=== PATIENT | male | born 1970 | race Caucasian/White ===

== ENCOUNTER 2018-01-08 23:00 | Emergency (ER) | payer OTHER ==
[2018-01-08 23:40] LABS: Absolute Lymphocytes (CBC) 3.2 K/uL (0.7-4.9); Absolute Monocytes 0.6 K/uL (0.1-1.3); Absolute Neutrophil 3.6 K/uL (1.8-8.0); Basophils % 1.2 % (0-1.3); Eosinophils % 5.2 % (0-4.4); Hematocrit 37.4 % (39.6-49.0); MCV 88.6 fL (80-100); MPV 8.6 fL (7.6-11.3); Monocytes % 7.6 % (3.3-12.3); RBC Red Blood Cell Count 4.23 M/uL (4.33-5.43)
[2018-01-08] MEDS ORDERED: NA CHLORIDE 0.9% 1,000 ML ONE (23:44)
[2018-01-09 00:11] LABS: BUN Blood Urea Nitrogen 32 mg/dL (6-20)
[2018-01-09 00:14] LABS: MCH 33.1 pg (27.0-35.0)
[2018-01-09 00:15] LABS: Bicarbonate 22 mEq/L (21-31); Sodium Level 132 mEq/L (135-145)
[2018-01-09 00:17] LABS: Glucose Level 408 mg/dL (65-120)
[2018-01-09] MEDS ORDERED: NA CHLORIDE 0.9% 1,000 ML ONE ×2 (00:40→03:17)
[2018-01-09 03:07] LABS: Potassium 4.1 mEq/L (3.6-5.0)
[2018-01-09] MEDS ORDERED: INSULIN -REGULAR HUMAN 50 UNIT/0.5 ML ML ONE (03:17)
[2018-01-09 03:27] LABS: Urine Blood NEGATIVE (NEG); Urine Glucose 2+ (NEG); Urine Protein 1+ (NEG); Urine Specific Gravity 1.015 (1.005-1.030)
--- NOTE | 2018-01-09 04:47 | ER ---
Nurse's Notes [facility] Name: Toño Marlow Age: 47 yrs Sex: Male : 1970 Arrival Date: 01/08/2018 Time: 23:01 Bed 15 Private MD: Anitha Singh F Diagnosis: Palpitations;Dehydration;Chest pain, unspecified Presentation: 01/08 23:34 Presenting complaint: Patient states: chest "twinge" intermittent for a few hours. pt ak1 admits to having increased FSBG at home. Transition of care: patient was not received from another setting of care. Onset of symptoms was January 08, 2018. Initial Sepsis Screen: Does the patient meet any 2 criteria? No. Patient's initial sepsis screen is negative. Does the patient have a suspected source of infection? No. Patient's initial sepsis screen is negative. Care prior to arrival: None. 23:34 Method Of Arrival: Ambulatory ak1 23:34 Acuity: GIA 3 ak1 Triage Assessment: 23:38 General: Appears in no apparent distress. Behavior is calm, cooperative. Pain: ak1 Complains of pain in chest. EENT: No signs and/or symptoms were reported regarding the EENT system. Neuro: No deficits noted. Cardiovascular: Reports chest pain, "rapid heart rate". Respiratory: No deficits noted. GI: No signs and/or symptoms were reported involving the gastrointestinal system. : No signs and/or symptoms were reported regarding the genitourinary system. Derm: No signs and/or symptoms reported regarding the dermatologic system. Musculoskeletal: No signs and/or symptoms reported regarding the musculoskeletal system. Historical: - Allergies: 23:38 No Known Allergies; ak1 - Home Meds: 23:38 metformin 1,000 mg Oral tr24 2 tabs once daily [Active]; glipizide 10 mg Oral tab 1 tab ak1 once daily [Active]; fenafibrate [Active]; amlodipine 5 mg tab 1 tab once daily [Active]; hydrochlorothiazide 25 mg Oral tab 1 tab once daily [Active]; - PMHx: 23:38 Diabetes - NIDDM; Hypertension; ak1 - PSHx: 23:38 Appendectomy; ak1 - Immunization history:: Adult Immunizations unknown. - Social history:: Smoking status: Patient/guardian denies using tobacco, the patient reports quitting approximately 2 years ago. - Family history:: not pertinent. - Hospitalizations: : No recent hospitalization is reported. Screenin:39 Abuse screen: Denies threats or abuse. Denies injuries from another. Nutritional ak1 screening: No deficits noted. Tuberculosis screening: No symptoms or risk factors identified. Fall Risk None identified. Assessment: 23:40 Pain: Pain does not radiate. Pain began 3 hours ago. ak1 23:59 General: pt informed of CT chest. pt given urinal for urine sample. ak1 Vital Signs: 23:38 BP 149 / 105; Pulse 116; Resp 20; Temp 98.1; Pulse Ox 99% on R/A; Weight 122.02 kg (R); ak1 Height 6 ft. 2 in. (187.96 cm) (R); Pain /10; 01/09 00:19 BP 117 / 66; Pulse 95; Resp 18; Pulse Ox 98% on R/A; ak1 01:21 BP 136 / 90; Pulse 91; Resp 18; Pulse Ox 98% on R/A; Pain 0/10; ak1 02:04 BP 129 / 83; Pulse 88; Resp 16; Temp 98.1; Pulse Ox 99% on R/A; Pain 0/10; ak1 04:53 BP 141 / 78; Pulse 89; Resp 18; Temp 98; Pulse Ox 97% on R/A; Pain 0/10; ak1 01/08 23:38 Body Mass Index 34.54 (122.02 kg, 187.96 cm) ak1 ED Course: 01/08 23:01 Patient arrived in ED. am2 23:01 Anitha Singh MD is Private Physician. am2 23:12 Desmond Montero MD is Attending Physician. rn 23:33 Sonia Mayer RN is Primary Nurse. ak1 23:36 Triage completed. ak1 23:38 X-ray completed. Portable x-ray completed in exam room. Patient tolerated procedure kw well. 23:38 Arm band placed on Patient placed in an exam room, on a stretcher, on assistant to the president, ak1 on pulse oximetry. 23:39 XRAY Chest (1 view) In Process Unspecified. EDMS 23:39 No provider procedures requiring assistance completed. Inserted saline lock: 20 gauge ak1 in left antecubital area, using aseptic technique. Blood collected. Patient maintains SpO2 saturation greater than 95% on room air. 23:40 Patient has correct armband on for positive identification. Placed in gown. Bed in low ak1 position. Call light in reach. Side rails up X 1. office helper clerical on. Pulse ox on. NIBP on. 23:50 Notified ED physician of a critical lab result(s). d-dimer 3888. ak1 01/09 00:04 Radiology exam delayed due to lab results not completed at this time. (BUN/Creatinine). cw1 00:17 Notified ED physician of a critical lab result(s). 408 glucose. ak1 02:03 BMP Sent. ak1 02:40 Radiology exam delayed due to lab results not completed at this time. repeating labs. cw1 03:38 CT Chest For PE Angio In Process Unspecified. EDMS 04:55 IV discontinued, intact, bleeding controlled, No redness/swelling at site. Pressure ak1 dressing applied. Administered Medications: 01/08 23:49 Drug: NS 0.9% 1000 ml Route: IV; Rate: 1000 ml; Site: left antecubital; ak1 01/09 00:43 Follow up: IV Status: Completed infusion ak1 00:43 Drug: NS 0.9% 1000 ml Route: IV; Rate: 1000 ml; Site: left antecubital; ak1 02:03 Follow up: IV Status: Completed infusion ak1 03:20 Drug: Insulin Regular Human 10 units {Co-Signature: okry (Arlyn Anguiano RN).} Route: ak1 Sub-Q; Site: left upper arm; 04:56 Follow up: Response: No adverse reaction ak1 03:36 Drug: NS 0.9% 1000 ml Route: IV; Rate: 1000 ml; Site: left antecubital; ak1 04:56 Follow up: IV Status: Completed infusion ak1 Point of Care Testing: Blood Glucose: 04:53 Blood Glucose: 317 mg/dL; ak1 04:53 ERP notifed of FSBG ak1 Ranges: Outcome: 04:47 Discharge ordered by . rn 04:54 Discharged to home ambulatory. ak1 04:54 Condition: improved 04:54 Discharge instructions given to patient, Instructed on discharge instructions, follow up and referral plans. 04:55 Patient left the ED. ak1 Signatures: Dispatcher [employer] EDMS Desmond Montero MD MD rn Woodley, Crystal cw1 Nikki Kong Amber RN RN ak1 Amie Marie am2 Arlyn Anguiano RN ea
--- NOTE | 2018-01-09 04:48 | EDPHYS ---
Physician Documentation [facility] Name: Toño Marlow Age: 47 yrs Sex: Male : 1970 Arrival Date: 01/08/2018 Time: 23:01 Bed 15 Private MD: Anitha Singh F ED Physician Desmond Montero HPI: 01/08 23:33 This 47 yrs old Male presents to ER via Unassigned with complaints of Chest rn Pain. 23:33 The patient or guardian reports chest pain that is located primarily in the anterior rn chest wall. Onset: today. The pain does not radiate. The chest pain is described as pinching. Modifying factors: The symptoms are alleviated by nothing. the symptoms are aggravated by nothing. Severity of pain: At its worst the pain was mild in the emergency department the pain is unchanged. The patient has not experienced similar symptoms in the past. Reports noticed today was having heart racing, checked HR, highest was 114 on his phone, felt a few seconds of intermittent chest "pinch" under left nipple, non-radiating, not better or worse with anything, states trouble falling asleep so came here for evaluation, states sugars have been running high, sometimes in 400s, takes only metformin, but sometimes sugar is 100. . Historical: - Allergies: 23:38 No Known Allergies; ak1 - Home Meds: 23:38 metformin 1,000 mg Oral tr24 2 tabs once daily [Active]; glipizide 10 mg Oral tab 1 tab ak1 once daily [Active]; fenafibrate [Active]; amlodipine 5 mg tab 1 tab once daily [Active]; hydrochlorothiazide 25 mg Oral tab 1 tab once daily [Active]; - PMHx: 23:38 Diabetes - NIDDM; Hypertension; ak1 - PSHx: 23:38 Appendectomy; ak1 - Immunization history:: Adult Immunizations unknown. - Social history:: Smoking status: Patient/guardian denies using tobacco, the patient reports quitting approximately 2 years ago. - Family history:: not pertinent. - Hospitalizations: : No recent hospitalization is reported. ROS: 23:33 Constitutional: Negative for fever, chills, and weight loss, Eyes: Negative for injury, rn pain, redness, and discharge, Neck: Negative for injury, pain, and swelling, Cardiovascular: Negative for edema, Respiratory: Negative for shortness of breath, cough, wheezing, and pleuritic chest pain, Abdomen/GI: Negative for abdominal pain, nausea, vomiting, diarrhea, and constipation, Back: Negative for injury and pain, MS/Extremity: Negative for injury and deformity, Skin: Negative for injury, rash, and discoloration, Neuro: Negative for headache, weakness, numbness, tingling, and seizure. Exam: 23:33 Constitutional: This is a well developed, well nourished patient who is awake, alert, rn and in no acute distress. Head/Face: Normocephalic, atraumatic. Eyes: Pupils equal round and reactive to light, extra-ocular motions intact. Lids and lashes normal. Conjunctiva and sclera are non-icteric and not injected. Cornea within normal limits. Periorbital areas with no swelling, redness, or edema. Neck: Trachea midline, no thyromegaly or masses palpated, and no cervical lymphadenopathy. Supple, full range of motion without nuchal rigidity, or vertebral point tenderness. No Meningismus. Cardiovascular: tachycardic, regular, no murmur Respiratory: Lungs have equal breath sounds bilaterally, clear to auscultation and percussion. No rales, rhonchi or wheezes noted. No increased work of breathing, no retractions or nasal flaring. Abdomen/GI: Soft, non-tender, with normal bowel sounds. No distension or tympany. No guarding or rebound. No evidence of tenderness throughout. Skin: Warm, dry with normal turgor. Normal color with no rashes, no lesions, and no evidence of cellulitis. MS/ Extremity: Pulses equal, no cyanosis. Neurovascular intact. Full, normal range of motion. Equal circumference. Neuro: Awake and alert, GCS 15, oriented to person, place, time, and situation. Cranial nerves II-XII grossly intact. Motor strength 5/5 in all extremities. Sensory grossly intact. Cerebellar exam normal. Normal gait. Vital Signs: 23:38 BP 149 / 105; Pulse 116; Resp 20; Temp 98.1; Pulse Ox 99% on R/A; Weight 122.02 kg (R); ak1 Height 6 ft. 2 in. (187.96 cm) (R); Pain 09/21; 01/09 00:19 BP 117 / 66; Pulse 95; Resp 18; Pulse Ox 98% on R/A; ak1 01:21 BP 136 / 90; Pulse 91; Resp 18; Pulse Ox 98% on R/A; Pain 0/10; ak1 02:04 BP 129 / 83; Pulse 88; Resp 16; Temp 98.1; Pulse Ox 99% on R/A; Pain 0/10; ak1 04:53 BP 141 / 78; Pulse 89; Resp 18; Temp 98; Pulse Ox 97% on R/A; Pain 0/10; ak1 01/08 23:38 Body Mass Index 34.54 (122.02 kg, 187.96 cm) ak1 MDM: 01/08 23:12 Patient medically screened. rn 01/09 04:45 Differential diagnosis: acute pericarditis, anxiety, costochondritis, esophagitis, rn gastroesophageal reflux disease (GERD), pericarditis, pleurisy, hyperglycemia, PE, pleurisy, dehydration. Data reviewed: vital signs, nurses notes, lab test result(s), EKG, radiologic studies, CT scan, plain films, and as a result, I will discharge patient. Counseling: I had a detailed discussion with the patient and/or guardian regarding: the historical points, exam findings, and any diagnostic results supporting the discharge/admit diagnosis, lab results, radiology results, the need for outpatient follow up, to return to the emergency department if symptoms worsen or persist or if there are any questions or concerns that arise at home. Response to treatment: the patient's symptoms have markedly improved after treatment, the patient's condition has returned to base line, the patient is now symptom free, patient is well hydrated. and as a result, I will discharge patient. Special discussion: I discussed with the patient/guardian in detail that at this point there is no indication for admission to the hospital. It is understood, however, that if the symptoms persist or worsen the patient needs to return immediately for re-evaluation. ED course: HR improved with fluids, normal vitals, patient feels much better, palpitations and tachycardia likely related to dehydration from hyperglycemia, no AG, neg CT PE, will dc home. . 01/08 23:23 Order name: Basic Metabolic Panel; Complete Time: 00:23 rn 01/08 23:23 Order name: BNP; Complete Time: 00:15 rn 01/08 23:23 Order name: CBC with Diff; Complete Time: 00:23 rn 01/08 23:23 Order name: Troponin (emerg Dept Use Only); Complete Time: 00:23 rn 01/08 23:23 Order name: D-Dimer; Complete Time: 00:03 rn 01/08 23:23 Order name: Ketone, Serum; Complete Time: 00:23 rn 01/08 23:23 Order name: XRAY Chest (1 view) rn 01/08 23:55 Order name: CT Chest For PE Angio rn 01/09 00:57 Order name: BMP rn 01/09 00:57 Order name: Basic Metabolic Panel; Complete Time: 03:09 EDMS 01/09 01:35 Order name: Urine Dipstick--Ancillary (enter results); Complete Time: 04:44 rg2 01/08 23:23 Order name: Urine Dipstick-Ancillary (obtain specimen); Complete Time: 01:49 rn 01/08 23:23 Order name: EKG; Complete Time: 23:24 rn 01/08 23:23 Order name: Cardiac monitoring; Complete Time: 23:34 rn 01/08 23:23 Order name: EKG - Nurse/Tech; Complete Time: 23:41 rn 01/08 23:23 Order name: IV Saline Lock; Complete Time: 23:34 rn 01/08 23:23 Order name: Labs collected and sent; Complete Time: 23:34 rn 01/08 23:23 Order name: O2 Per Protocol; Complete Time: 23:34 rn 01/08 23:23 Order name: O2 Sat Monitoring; Complete Time: 23:34 rn Administered Medications: 01/08 23:49 Drug: NS 0.9% 1000 ml Route: IV; Rate: 1000 ml; Site: left antecubital; ak1 01/09 00:43 Follow up: IV Status: Completed infusion ak1 00:43 Drug: NS 0.9% 1000 ml Route: IV; Rate: 1000 ml; Site: left antecubital; ak1 02:03 Follow up: IV Status: Completed infusion ak1 03:20 Drug: Insulin Regular Human 10 units {Co-Signature: kory (Arlyn Anguiano RN).} Route: ak1 Sub-Q; Site: left upper arm; 04:56 Follow up: Response: No adverse reaction ak1 03:36 Drug: NS 0.9% 1000 ml Route: IV; Rate: 1000 ml; Site: left antecubital; ak1 04:56 Follow up: IV Status: Completed infusion ak1 Point of Care Testing: Blood Glucose: 04:53 Blood Glucose: 317 mg/dL; ak1 04:53 ERP notifed of FSBG ak1 Ranges: Critical Glucose Levels:Adult <50 mg/dl or >400 mg/dl <40 mg/dl or >180 mg/dl Disposition: 01/09/18 04:47 Discharged to Home. Impression: Palpitations, Dehydration, Chest pain, unspecified. - Condition is Stable. - Discharge Instructions: Nonspecific Chest Pain, Dehydration, Adult, Hyperglycemia, Palpitations. - Medication Reconciliation Form, Thank You Letter, Antibiotic Education, Prescription Opioid Use form. - Follow up: Private Physician; When: As needed; Reason: Recheck today's complaints, Re-evaluation by your physician. - Problem is new. - Symptoms have improved. Signatures: Dispatcher [employer] EDMS Desmond Montero MD MD rn Krenek, Amber, RN RN ak Arlyn Anguiano RN, ea Corrections: (The following items were deleted from the chart) 01/08 23:35 23:33 Constitutional: Negative for fever, chills, and weight loss, Eyes: Negative for rn injury, pain, redness, and discharge, Neck: Negative for injury, pain, and swelling, Cardiovascular: Negative for edema, Respiratory: Negative for shortness of breath, cough, wheezing, and pleuritic chest pain, Abdomen/GI: Negative for abdominal pain, nausea, vomiting, diarrhea, and constipation, Back: Negative for injury and pain, MS/Extremity: Negative for injury and deformity, Skin: Negative for injury, rash, and discoloration, Neuro: Negative for headache, weakness, numbness, tingling, and seizure, rn 23:36 23:33 Constitutional: This is a well developed, well nourished patient who is awake, rn alert, and in no acute distress. Head/Face: Normocephalic, atraumatic. Eyes: Pupils equal round and reactive to light, extra-ocular motions intact. Lids and lashes normal. Conjunctiva and sclera are non-icteric and not injected. Cornea within normal limits. Periorbital areas with no swelling, redness, or edema. Neck: Trachea midline, no thyromegaly or masses palpated, and no cervical lymphadenopathy. Supple, full range of motion without nuchal rigidity, or vertebral point tenderness. No Meningismus. Cardiovascular: Regular rate and rhythm with a normal S1 and S2. No gallops, murmurs, or rubs. Normal PMI, no JVD. No pulse deficits. Respiratory: Lungs have equal breath sounds bilaterally, clear to auscultation and percussion. No rales, rhonchi or wheezes noted. No increased work of breathing, no retractions or nasal flaring. Abdomen/GI: Soft, non-tender, with normal bowel sounds. No distension or tympany. No guarding or rebound. No evidence of tenderness throughout. Skin: Warm, dry with normal turgor. Normal color with no rashes, no lesions, and no evidence of cellulitis. MS/ Extremity: Pulses equal, no cyanosis. Neurovascular intact. Full, normal range of motion. Equal circumference. Neuro: Awake and alert, GCS 15, oriented to person, place, time, and situation. Cranial nerves II-XII grossly intact. Motor strength 5/5 in all extremities. Sensory grossly intact. Cerebellar exam normal. Normal gait. rn
--- NOTE | 2018-01-09 07:15 | EKG ---
Test Date: 2018-01-08 Test Time: 23:36:23 Language Translator: SHADY MEASUREMENT RESULTS: Intervals: Rate: 109 CA: 142 QRSD: 76 QT: 344 QTc: 463 [place]: P: 43 CA: 142 QRS: 69 T: 54 INTERPRETIVE STATEMENTS: Sinus tachycardia with frequent premature ventricular complexes Otherwise normal ECG No previous ECG available for comparison Electronically Signed On 01-09-18 07:14:50 CDT by Hi Rodrigez
--- NOTE | 2018-01-09 08:33 | RAD REPORT ---
EXAM DESCRIPTION: RAD - Chest Single View - 01/08/2018 11:39 pm CLINICAL HISTORY: Chest pain COMPARISON: None. TECHNIQUE: AP portable chest image was obtained 2331 hours . FINDINGS: Lungs are clear. Heart and vasculature are normal. No measurable pleural effusion and no p neumothorax. No gross bony abnormality seen. No acute aortic findings suspected. IMPRESSION: No acute cardiopulmonary process.
--- NOTE | 2018-01-09 09:00 | RAD REPORT ---
EXAM DESCRIPTION: CT - Chest For Pe Angio - 01/09/2018 7:03 am CLINICAL HISTORY: Chest pain A preliminary written report was provided at the time of the study, and the report was reviewed prio r to final dictation. COMPARISON: None. TECHNIQUE: Dynamically enhanced 3 mm thick images of the chest were obtained during administration o f approximately 150mL Isovue 370 IV contrast. Coronal and oblique reconstruction images were generate d and reviewed. Exam utilizes a protocol to evaluate the pulmonary arterial tree. All CT scans are performed using dose optimization technique as appropriate and may include automated exposure control or mA/KV adjustment according to patient size. FINDINGS: No pulmonary emboli are identified. The aorta as imaged shows no acute or suspicious finding. No pericardial thickening or effusion. No infiltrate or mass in the lung parenchyma. No pleural effusion or pleural thickening. No mediastinal or hilar suspicious masses. A few mediastinal and hilar granulomatous calcifications a re present. No chest wall masses or abnormal axillary lymphadenopathy. IMPRESSION: No pulmonary emboli identified. No other significant or suspicious findings.
== END 2018-01-09 04:55 | disposition home or self-care (01) ==
LOC: ER 23:00
DX: E86.0 Dehydration (principal); R00.2 Palpitations; I10 Essential (primary) hypertension; E11.9 Type 2 diabetes mellitus without complications; Z87.891 Personal history of nicotine dependence
CPT/HCPCS: 36415; 71045; 71275; 80048; 81003; 82009; 82962; 83880; 84484; 85025; 85379; 93005; 96360; 96361; 96372; 99285; J7030; Q9967

== ENCOUNTER 2022-04-15 09:17 | Emergency (ER) | payer OTHER, SELFPAY ==
--- OUTSIDE RECORDS SUMMARY | 2022-04-15 09:21 | XMS REPORT | Continuity of Care Document ---
:1970 Author Organization [facility] t Address [address] [place] [address] Care Team Providers Name Role Phone A_Byrd Attending Clinician Unavailable A_Byrd Admitting Clinician Unavailable Payers Payer Name Policy Type Policy Number Effective Date Expiration Date [facility] - [id number] CHOICE PLUS Problems Condition Condition Condition Status Onset Resolution Last Treating Co mments Source Name Details Category Date Date Treatment Clinician Date Hypertrigl Hypertrigl Problem Active 2019-0 [facility] yceridemia yceridemia 5-30 da 00:00: Medical 00 Group Type 2 Type 2 Problem Active [facility] diabetes Diabetes da mellitus [facility] Hyperlipid Hyperlipid Problem Active [facility] Impotence Impotence Problem Active [facility] Essential Essential Problem Active [facility] hypertensi Hypertensi da on on [facility] Group Allergies, Adverse Reactions, Alerts This patient has no known allergies or adverse reactions. Social History Smoking Status Start Date Stop Date Source Former Smoker [facility] Medications Ordered Filled Start Stop Current Ordering Indication Dosage Frequency Signature Comments Components Source Medication Medication Date Date Medication? Clinician (SIG) Name Name Actos 30 mg Actos 30 mg No 1 Q1D Actos 30 [facility] tablet Take tablet Take mg tablet da 1 tablet 1 tablet Take 1 Medic al every day every day tablet Boo up by oral by oral every day route. route. by oral route. amlodipine amlodipine No amlodipine [facility] 5 mg tablet 5 mg tablet 5 mg d a TAKE ONE TAKE ONE tablet Medic al TABLET BY TABLET BY TAKE ONE G roup MOUTH ONCE MOUTH ONCE TABLET BY DAILY IN DAILY IN MOUTH ONCE THE MORNING THE MORNING DAILY IN THE MORNING fenofibrate fenofibrate No 1 Q1D fenofibrat [facility] 160 mg 160 mg e 160 mg da tablet Take tablet Take tablet Medical 1 tablet 1 tablet Take 1 Group every day every day tablet by oral by oral every day route. route. by oral route. glipizide glipizide No 1 BID glipizide [facility] 10 mg 10 mg 10 mg da tablet Take tablet Take tablet Medical 1 tablet 1 tablet Take 1 Group twice a day twice a day tablet by oral by oral twice a route. route. day by oral route. hydrochloro hydrochloro No 1 Q1D hydrochlor [facility] thiazide 25 thiazide 25 othiazide da mg tablet mg tablet 25 mg Medi emir Take 1 Take 1 tablet Group tablet tablet Take 1 every day every day tablet by oral by oral every day route. route. by oral route. Lipitor 10 Lipitor 10 No 1 Q1D Lipitor 10 [facility] mg tablet mg tablet mg tablet da Take 1 Take 1 Take 1 Medical tablet tablet tablet Group every day every day every day by oral by oral by oral route. route. route. metformin metformin No 1 BID metformin [facility] 1,000 mg 1,000 mg 1,000 mg da tablet Take tablet Take tablet Medical 1 tablet 1 tablet Take 1 Group twice a day twice a day tablet by oral by oral twice a route. route. day by oral route. Immunizations Ordered Immunization Filled Immunization Date Status Commen ts Source Name Name pneumococcal pneumococcal 2018-01-19 Completed [place] conjugate PCV 13 conjugate PCV 13 12:16:00 Pa dical Group influenza, influenza, 2017-08-11 Completed [place] injectable, injectable, 11:40:00 Medical Grou p quadrivalent quadrivalent pneumococcal pneumococcal 2008-09-12 Completed [place] polysaccharide PPV23 polysaccharide PPV23 00:00:00 Medical Group pneumococcal, pneumococcal, 2008-09-12 Completed [place] [facility] unspecified unspecified 00:00:00 [facility] Grou p formulation formulation Td (adult) Td (adult) 2007-09-12 Completed [place] 00:00:00 [facility] Vital Signs Vital Name Observation Time Observation Value Comments Source BP Diastolic 2019-02-08 00:00:00 85 mm[Hg] [facility] Height 2019-02-08 00:00:00 72 [in_i] [facility] BMI (Body Mass 2019-02-08 00:00:00 38.4 kg/m2 [facility] [employer] [facility]) Group BP Systolic 2019-02-08 00:00:00 140 mm[Hg] [facility] Body Weight 2019-02-08 00:00:00 4528 [oz_av] [facility] Procedures This patient has no known procedures. Encounters Start End Encounter Admission Attending Care Care Encounter Source Date/Time Date/Time Type Type Clinicians Facility Department ID 2021-09-10 2021-09-10 Outpatient A_[facility] [id number] [place] 12:49:00 12:49:00 230 [facility] 2020-07-30 2020-07-30 Outpatient A_Byrd [facility] [id number] [place] 02:21:00 02:21:00 118 Medical Group 2020-05-15 2020-05-15 Outpatient A_Byrd [facility] MMG [id number] [place] 02:55:00 02:55:00 903 Medical Group 2020-04-10 2020-04-10 Outpatient A_Byrd [facility] MMG [id number] [place] 12:58:00 12:58:00 730 Medical Group 2020-03-06 2020-03-06 Outpatient A_Byrd [facility] MMG [id number] [place] 12:54:00 12:54:00 625 Medical Group 2020-01-31 2020-01-31 Outpatient A_Byrd [facility] MMG [id number] [place] 12:52:00 12:52:00 521 Medical Group 2020-01-24 2020-01-24 Outpatient A_By[facility] MMG [id number] [place] 06:23:00 06:23:00 514 Medical Group 2020-01-24 2020-01-24 Outpatient A_By[facility] MMG [id number] [place] 06:23:00 06:23:00 515 Medical Group 2020-01-24 2020-01-24 Nahum Rick MM [place] - [id number] [facility] 00:00:00 00:00:00 MD Dante: [address] [facility] [address], [place] [address] , Ph. 2019-02-08 2019-02-08 Nahum KEYES [place] - [id number] [facility] 00:00:00 00:00:00 [place] [facility] [address] [facility] [place], [place] - [address], [facility] [address] , Ph. Results This patient has no known results.
[2022-04-15 09:59] LABS: Absolute Lymphocytes (CBC) 1.5 K/uL (0.7-4.9); Hematocrit 34.6 % (39.6-49.0); Lymphocytes % 19.7 % (15.3-44.8); MCV 88.2 fL (80-100); RBC Red Blood Cell Count 3.93 M/uL (4.33-5.43)
[2022-04-15 10:22] LABS: Thyroid Stimulating Hormone 1.43 uIU/mL (0.360-3.740); Troponin High Sensitivity 6.3 pg/mL (<58.9)
--- NOTE | 2022-04-15 10:33 | RAD REPORT ---
EXAM DESCRIPTION: RAD - Chest Single View - 04/15/2022 10:26 am CLINICAL HISTORY: CHEST PAIN Chest pain. COMPARISON: Chest Single View dated 01/08/2018 FINDINGS: Portable technique limits examination quality. The lungs are grossly clear. The heart is normal in size. No displaced fractures. IMPRESSION: No acute intrathoracic process suspected.
[2022-04-15] MEDS ORDERED: NA CHLORIDE 0.9% 500 ML ONE (10:44)
--- NOTE | 2022-04-15 11:23 | ER ---
Nurse's Notes [facility] Name: Toño Marlow Age: 51 yrs Sex: Male : 1970 Arrival Date: 04/15/2022 Time: 09:21 Bed 6 Private MD: Diagnosis: Palpitations;Dehydration;Abnormal results of kidney function studies-Creatinine 2.12 Presentation: 04/15 09:27 Chief complaint: Patient states: "I was working outside and I suddenly just felt weak ss and felt a fluttering in my chest. I never had any pain or tightness. My blood sugar this morning was 83, I ate a taco and at medical at work, they checked it and it was 221.". Coronavirus screen: Client denies travel out of the [place] in the last 14 days. Ebola Screen: Patient denies exposure to infectious person. Patient denies travel to an Ebola-affected area in the 21 days before illness onset. Initial Sepsis Screen: Does the patient meet any 2 criteria? No. Patient's initial sepsis screen is negative. Does the patient have a suspected source of infection? No. Patient's initial sepsis screen is negative. Risk Assessment: Do you want to hurt yourself or someone else? Patient reports no desire to harm self or others. Onset of symptoms was April 15, 2022. 09:27 Method Of Arrival: Ambulatory ss 09:27 Acuity: GIA 3 ss 09:30 Chief complaint:. Coronavirus screen: Vaccine status: Patient reports being ll1 unvaccinated. Client denies travel out of the [place] in the last 14 days. At this time, the client does not indicate any symptoms associated with coronavirus-19. Ebola Screen: Patient denies travel to an Ebola-affected area in the 21 days before illness onset. No acute neurological deficit is noted. Initial Sepsis Screen: Does the patient meet any 2 criteria? HR > 90 bpm. No. Patient's initial sepsis screen is negative. Does the patient have a suspected source of infection? No. Patient's initial sepsis screen is negative. Risk Assessment: Do you want to hurt yourself or someone else? Patient reports no desire to harm self or others. Onset of symptoms was April 15, 2022 at 08:15. 09:30 Acuity: GIA 3 ll1 09:30 Method Of Arrival: Ambulatory ll1 Triage Assessment: 09:35 The onset of the patients symptoms was less than three hours ago. General: Appears in ll1 no apparent distress. Behavior is calm, cooperative, appropriate for age. Pain: Denies pain. Neuro: Reports numbness weakness. Cardiovascular: Reports palpitations. Respiratory: Denies cough. Stroke Activation: Symptom onset > 6 hours Physician: Stroke Attending; Name: ; Notified At: ; Arrived At: Physician: Chief Stroke Resident; Name: ; Notified At: ; Arrived At: Physician: Stroke Resident; Name: ; Notified At: ; Arrived At: Physician: ED Attending; Name: ; Notified At: ; Arrived At: Physician: ED Resident; Name: ; Notified At: ; Arrived At: Historical: - Allergies: 09:29 No Known Allergies; ll1 - PMHx: 09:29 Diabetes - NIDDM; Hypertension; ll1 - PSHx: 09:29 Appendectomy; ll1 - Immunization history:: Client reports having NOT received the Covid vaccine. - Social history:: Smoking status: Patient/guardian denies using tobacco, the patient reports quitting approximately 7 years ago. Screenin:41 Abuse screen: Denies threats or abuse. Nutritional screening: No deficits noted. kr3 Tuberculosis screening: No symptoms or risk factors identified. Fall Risk IV access (20 points). Total Rae Fall Scale indicates No Risk (0-24 pts). Assessment: 11:17 General: Appears in no apparent distress. comfortable, Behavior is calm, cooperative, kr3 appropriate for age. Vital Signs: 09:27 Pulse 97; Resp 18; Temp 98.0(TE); Pulse Ox 100% on R/A; Weight 113.4 kg; Height 6 ft. 2 ss in. (187.96 cm); Pain 0/10; 09:30 BP 127 / 77; Pulse 96; Resp 18; Temp 98.8; Pulse Ox 100% on R/A; Weight 113.4 kg; ll1 Height 6 ft. 2 in. (187.96 cm); Pain 0/10; 09:31 BP 127 / 77; ss 10:01 BP 115 / 70; Pulse 85 LA; kr3 10:01 BP 117 / 64; Pulse 84 RA; kr3 11:18 BP 119 / 66; Pulse 84; Pulse Ox 100% on R/A; kr3 11:40 BP 139 / 69; Pulse 84; Pulse Ox 100% on R/A; kr3 09:30 Body Mass Index 32.10 (113.40 kg, 187.96 cm) ll1 ED Course: 09:21 Patient arrived in ED. rg4 09:23 Lilly De La Cruz FNP-C [facility]. snw 09:23 Philip Valero MD is Attending Physician. snw 09:26 Adelina Villalta, RN is Primary Nurse. kr3 09:29 Arm band placed on Patient placed in an exam room, on a stretcher. ll1 09:29 EKG completed in triage. Results shown to MD. ll1 09:31 Triage completed. ss 09:38 Inserted saline lock: 20 gauge in right forearm, using aseptic technique. Blood kr3 collected. 10:28 XRAY Chest (1 view) In Process Unspecified. EDMS 11:41 Bed in low position. Call light in reach. Side rails up X 1. kr3 11:41 No provider procedures requiring assistance completed. IV discontinued, intact, kr3 bleeding controlled, No redness/swelling at site. Pressure dressing applied. Administered Medications: 10:39 Drug: NS 0.9% 500 ml Route: IV; Rate: bolus; Site: right forearm; kr3 11:17 Follow up: Response: No adverse reaction; IV Status: Completed infusion; IV Intake: ll1 500ml Medication: 11:42 VIS not applicable for this client. kr3 Intake: 11:17 IV: 500ml; Total: 500ml. ll1 Outcome: 11:22 Discharge ordered by MD. snw 11:41 Discharged to home ambulatory. kr3 11:41 Condition: stable 11:41 Discharge instructions given to patient, Instructed on discharge instructions, follow up and referral plans. Demonstrated understanding of instructions, follow-up care. 11:42 Patient left the ED. kr3 Signatures: Dispatcher [employer] EDNM Lilly De La Cruz FNP-C FNP-Jennifer Gutierrez RN RN ss Garcia, Rubi rg4 Kalina Francis RN RN ll1 Adelina Villalta, ELLIOTT RN kr3 Corrections: (The following items were deleted from the chart) 09:45 09:44 Inserted saline lock: 20 gauge in right forearm, using aseptic technique. Blood kr3 collected. kr3 11:17 11:16 Reassessment: kr3 kr3 11:18 11:17 General: Appears in no apparent distress. comfortable, Behavior is calm, kr3 cooperative, appropriate for age, kr3
--- NOTE | 2022-04-15 11:23 | EDPHYS ---
Physician Documentation [facility] Name: Toño Marolw Age: 51 yrs Sex: Male : 1970 Arrival Date: 04/15/2022 Time: 09:21 Bed 6 Private MD: ED Physician Philip Valero HPI: 04/15 09:35 This 51 yrs old Male presents to ER via Ambulatory with complaints of Numbness Of Hand, snw Chest Fluttering, Weakness. 09:36 The patient presents with a history of "fluttering". Context: The symptoms occur with snw light activity. Onset: The symptoms/episode began/occurred suddenly, today, and improved 1 hours ago. Duration: The patient or guardian reports a single episode, that is now resolved. Modifying factors: The symptoms are aggravated by heat. Associated signs and symptoms: Pertinent positives: left hand paresthesias, Pertinent negatives: chest pain, cough, lightheadedness, nausea, SOB, syncope. Severity of symptoms: At their worst the symptoms were moderate this morning. The patient has not experienced similar symptoms in the past, family hx of A. fib. The patient has not recently seen a physician. on meds for dm, high cholesterol, htn. Historical: - Allergies: 09:29 No Known Allergies; ll1 - PMHx: 09:29 Diabetes - NIDDM; Hypertension; ll1 - PSHx: 09:29 Appendectomy; ll1 - Immunization history:: Client reports having NOT received the Covid vaccine. - Social history:: Smoking status: Patient/guardian denies using tobacco, the patient reports quitting approximately 7 years ago. ROS: 09:36 Constitutional: Negative for fever, chills, and weight loss, Eyes: Negative for injury, snw pain, redness, and discharge, ENT: Negative for injury, pain, and discharge, Neck: Negative for injury, pain, and swelling, Respiratory: Negative for shortness of breath, cough, wheezing, and pleuritic chest pain, Abdomen/GI: Negative for abdominal pain, nausea, vomiting, diarrhea, and constipation, Back: Negative for injury and pain, : Negative for injury, bleeding, discharge, and swelling, MS/Extremity: Negative for injury and deformity, Neuro: Negative for headache, weakness, numbness, tingling, and seizure, Psych: Negative for depression, anxiety, suicide ideation, homicidal ideation, and hallucinations, Allergy/Immunology: Negative for hives, rash, and allergies. 09:36 Cardiovascular: Positive for palpitations, Negative for chest pain, edema. 09:36 Skin: Positive for paresthesias to left hand, Negative for abrasions, avulsion, cellulitis. 09:36 Endocrine: Positive for diabetes, fsbs at 125mg/dl post breakfast taco, prion to s/s onset. Exam: 09:36 Constitutional: This is a well developed, well nourished patient who is awake, alert, snw and in no acute distress. Head/Face: Normocephalic, atraumatic. Eyes: Pupils equal round and reactive to light, extra-ocular motions intact. Lids and lashes normal. Conjunctiva and sclera are non-icteric and not injected. Cornea within normal limits. Periorbital areas with no swelling, redness, or edema. ENT: Nares patent. No nasal discharge, no septal abnormalities noted. Tympanic membranes are normal and external auditory canals are clear. Oropharynx with no redness, swelling, or masses, exudates, or evidence of obstruction, uvula midline. Mucous membranes moist. Neck: Trachea midline, no thyromegaly or masses palpated, and no cervical lymphadenopathy. Supple, full range of motion without nuchal rigidity, or vertebral point tenderness. No Meningismus. Chest/axilla: Normal chest wall appearance and motion. Nontender with no deformity. No lesions are appreciated. Cardiovascular: Tachycardic rate and rhythm with a normal S1 and S2. No gallops, murmurs, or rubs. Normal PMI, no JVD. No pulse deficits. EKG without ectopy, rate 92bpm, rightward axis. Pt denies chest pain Respiratory: Lungs have equal breath sounds bilaterally, clear to auscultation and percussion. No rales, rhonchi or wheezes noted. No increased work of breathing, no retractions or nasal flaring. Abdomen/GI: Soft, non-tender, with normal bowel sounds. No distension or tympany. No guarding or rebound. No evidence of tenderness throughout. Back: No spinal tenderness. No costovertebral tenderness. Full range of motion. Skin: Warm, dry with normal turgor. Normal color with no rashes, no lesions, and no evidence of cellulitis. MS/ Extremity: Pulses equal, no cyanosis. Neurovascular intact. Full, normal range of motion. Neuro: Awake and alert, GCS 15, oriented to person, place, time, and situation. Cranial nerves II-XII grossly intact. Motor strength 5/5 in all extremities. Sensory grossly intact. Cerebellar exam normal. Normal gait. At the time of s/s pt states paresthesias to left hand, that has resolved at present Psych: Awake, alert, with orientation to person, place and time. Behavior, mood, and affect are within normal limits. 09:47 ECG was reviewed by the Attending Physician. bpm 92, right axis, flipped T in III, poor snw R wave progression Vital Signs: 09:27 Pulse 97; Resp 18; Temp 98.0(TE); Pulse Ox 100% on R/A; Weight 113.4 kg; Height 6 ft. 2 ss in. (187.96 cm); Pain 0/10; 09:30 BP 127 / 77; Pulse 96; Resp 18; Temp 98.8; Pulse Ox 100% on R/A; Weight 113.4 kg; ll1 Height 6 ft. 2 in. (187.96 cm); Pain 0/10; 09:31 BP 127 / 77; ss 10:01 BP 115 / 70; Pulse 85 LA; kr3 10:01 BP 117 / 64; Pulse 84 RA; kr3 11:18 BP 119 / 66; Pulse 84; Pulse Ox 100% on R/A; kr3 11:40 BP 139 / 69; Pulse 84; Pulse Ox 100% on R/A; kr3 09:30 Body Mass Index 32.10 (113.40 kg, 187.96 cm) ll1 MDM: 09:35 Patient medically screened. snw 14:24 Data reviewed: vital signs, nurses notes. Data interpreted: Pulse oximetry: on room air snw is 100 %. Interpretation: normal. Counseling: I had a detailed discussion with the patient and/or guardian regarding: the historical points, exam findings, and any diagnostic results supporting the discharge/admit diagnosis, the presence of at least one elevated blood pressure reading (>120/80) during this emergency department visit, lab results. Response to treatment: the patient's symptoms have resolved after treatment. 04/15 09:46 Order name: Basic Metabolic Panel; Complete Time: 10:24 snw 04 09:46 Order name: CBC with Diff; Complete Time: 10:20 snw 04/15 09:46 Order name: Troponin HS; Complete Time: 10:24 snw 04/15 09:46 Order name: TSH; Complete Time: 10:24 snw 04/15 09:46 Order name: CPK; Complete Time: 10:24 snw 04 11:26 Order name: Urine Dipstick-Ancillary; Complete Time: 14:23 EDMS 04/15 14:23 Interpretation: Within normal limits: proteinuria. snw 04/15 09:46 Order name: XRAY Chest (1 view); Complete Time: 10:35 snw 04/15 09:46 Order name: EKG; Complete Time: 09:47 snw 04/15 09:46 Order name: Cardiac monitoring; Complete Time: 09:53 snw 04/15 09:46 Order name: EKG - Nurse/Tech; Complete Time: 09:48 snw 04/15 09:46 Order name: IV Saline Lock; Complete Time: 09:48 snw 04/15 09:46 Order name: Labs collected and sent; Complete Time: 09:48 snw 04/15 09:46 Order name: O2 Per Protocol; Complete Time: 09:48 snw 04/15 09:46 Order name: O2 Sat Monitoring; Complete Time: 09:48 snw 04/15 09:53 Order name: Bilateral blood pressure; Complete Time: 10:01 snw 04 11:24 Order name: Urine Dipstick-Ancillary (obtain specimen); Complete Time: 11:25 snw EC:25 Rate is 92 beats/min. Rhythm is regular. PA interval is normal. QRS interval is normal. snw QT interval is normal. No Q waves. T waves are Inverted in lead III. No ST changes noted. Clinical impression: NSR w/ Non-specific ST/T Changes. Administered Medications: 10:39 Drug: NS 0.9% 500 ml Route: IV; Rate: bolus; Site: right forearm; kr3 11:17 Follow up: Response: No adverse reaction; IV Status: Completed infusion; IV Intake: ll1 500ml Disposition: 14:37 Co-signature as Attending Physician, Philip Valero MD I agree with the assessment and kdr plan of care. Disposition Summary: 04/15/22 11:22 Discharge Ordered Location: Home snw Condition: Stable snw Diagnosis - Palpitations snw - Dehydration snw - Abnormal results of kidney function studies - Creatinine 2.12 snw Followup: snw - With: Private Physician - When: - Reason: Recheck today's complaints, Continuance of care, Re-evaluation by your physician Followup: snw - With: Emergency Department - When: As needed - Reason: If symptoms return, Worsening of condition Discharge Instructions: - Discharge Summary Sheet snw - Dehydration, Adult snw - Palpitations, [id number] snw - Rehydration, Adult snw - Aspirin and Your Heart snw Forms: - Medication Reconciliation Form snw - Thank You Letter snw - Antibiotic Education snw - Prescription Opioid Use snw - Work release form ll1 Signatures: Dispatcher [employer] Philip Ramirez MD MD kdr Waters, Shelly, JEWEL STAKER-C JEWEL STAKER-Csnw Klaina Francis, RN RN ll1 Adeilna Villalta RN RN kr3
[2022-04-15 11:26] LABS: Urine Blood Negative (Negative); Urine Glucose Negative (Negative); Urine Protein 2+ (Negative); Urine pH 5.5 (5.0-7.0)
[2022-04-15 12:27] VITALS: O2SAT 100
[2022-04-15 12:29] VITALS: TEMP 98.8
[2022-04-15 12:49] VITALS: BP 139/69
--- NOTE | 2022-04-16 15:10 | EKG ---
Test Date: 2022-04-15 Test Time: 09:25:20 Turnaround Engineer: GIULIANA MEASUREMENT RESULTS: Intervals: Rate: 92 IA: 148 QRSD: 78 QT: 364 QTc: 450 [place]: P: 74 IA: 148 QRS: 96 T: 22 INTERPRETIVE STATEMENTS: Normal sinus rhythm Rightward axis Borderline ECG Compared to ECG 01/08/2018 23:36:23 Right-axis deviation now present Sinus tachycardia no longer present Ventricular premature complex(es) no longer present Electronically Signed On 04-16-22 15:08:31 CDT by Zeeshan Kennedy
== END 2022-04-15 11:42 | disposition home or self-care (01) ==
LOC: ER 09:17
DX: E86.0 Dehydration (principal); R94.4 Abnormal results of kidney function studies; E11.9 Type 2 diabetes mellitus without complications; I10 Essential (primary) hypertension
CPT/HCPCS: 36415; 71045; 80048; 81003; 82550; 84443; 84484; 85025; 93005; 96360; 99284; J7040